=== PATIENT | male | born 1980 | race Caucasian/White ===

== ENCOUNTER 2024-06-01 13:00 | Emergency (ER) | payer OTHER ==
[~2024-06-01] VITALS: Ht 180.3 cm; Wt 100.0 kg
[2024-06-01 13:40] VITALS: PULSE 75; RESP 16; O2SAT 97
[2024-06-01] MEDS: SODIUM CHLORIDE 0.9% 500 ML IV ONE (13:45)
[2024-06-01 14:08] LABS: Chloride 110 mmol/L (98-107); Potassium 3.4 mmol/L (3.5-5.1); Sodium 142 mmol/L (136-145)
[2024-06-01 14:09] LABS: Anion Gap 8 (5-15); Calcium 8.7 mg/dL (8.7-10.4); Carbon Dioxide 24 mmol/L (20-30)
[2024-06-01 14:14] LABS: BUN/Creatinine Ratio 11.5 (10.0-20.0); Basophils # (auto) 0.1 10 ^3/uL (0-0.2); Basophils % (auto) 0.8 % (0.0-2.0); Blood Urea Nitrogen 11 mg/dL (9-23); Eosinophils # (auto) 0.2 10 ^3/uL (0-0.8); Eosinophils % (auto) 2.4 % (0.0-7.0); Glucose 124 mg/dL (74-106); Hematocrit 42.9 % (41.0-53.0); Hemoglobin 14.8 g/dL (13.5-17.5); Lymphocytes # (auto) 1.7 10 ^3/uL (0.4-5.4); Lymphocytes % (auto) 19.5 % (10.0-50.0); Mean Corpuscular Hemoglobin 29.8 pg (28.0-32.0); Mean Corpuscular Hgb Conc. 34.5 g/dL (32.0-36.0); Mean Corpuscular Volume 86.5 fL (80.0-100.0); Monocytes # (auto) 0.5 10 ^3/uL (0-1.3); Monocytes % (auto) 5.8 % (0.0-12.0); Neutrophils # (auto) 6.3 10 ^3/uL (1.6-8.6); Neutrophils % (auto) 71.5 % (37.0-80.0); Nucleated Red Blood Cells % 0.1 %; Platelet Count (auto) 236 10^3/uL (140-450); Red Blood Cells 4.96 10^6/uL (4.5-5.90); White Blood Cell 8.8 10^3/uL (4.4-10.8)
[2024-06-01 17:04] LABS: Urine Bacteria None Seen /hpf (None Seen)
[2024-06-01 17:12] LABS: Urine Blood Negative /uL (Negative); Urine Clarity Clear (Clear); Urine Color Yellow (Yellow); Urine Mucus FEW (None Seen); Urine Protein, UAD 1+ (Negative); Urine Specific Gravity 1.035 (1.001-1.035); Urine Urobilinogen 2 mg/dL (Negative); Urine WBC 3 /hpf (0 - 3); Urine pH 6.5 (5.0-9.0)
[2024-06-01 19:56] VITALS: BP 126/87; PULSE 71; RESP 18; TEMP 98.4; O2SAT 98
== END 2024-06-01 20:11 | disposition left against medical advice (07) ==
LOC: ER 13:00 → EDBD 13:00 → ER 20:11
DX: G90.9 Disorder of the autonomic nervous system, unspecified (principal); R00.1 Bradycardia, unspecified; F15.90 Other stimulant use, unspecified, uncomplicated; Z98.890 Other specified postprocedural states; Z87.891 Personal history of nicotine dependence
CPT/HCPCS: 36415; 71045; 80048; 81001; 84484; 85025; 85379; 93005